=== PATIENT | male | born 1975 | race Caucasian/White ===

== ENCOUNTER 2023-05-04 01:07 | Emergency (ER) | payer OTHER, SELFPAY ==
[2023-05-04] VITALS (7 sets, daily range): BP systolic 132–269; BP diastolic 85–122; PULSE 59–74; RESP 10–19; O2SAT 90–96
[2023-05-04] MEDS: 0.9 % Sodium Chloride 1,000 ML 999 ML IV (08:51)
[2023-05-04] MEDS: Phenylephrine HCL 10 MG/ML VIAL INTRACAVER (08:51)
--- NOTE | 2023-05-04 08:58 | PC.NURSE ---
urology and MD Milton at bedside to treat ptt priapsm. VO for 4mg zofran administered. pt HR blair in the 50s and BP elevated. MD lynn.
[2023-05-04] MEDS: HYDROmorphone HCl 0.5 MG/0.5 ML SYRINGE IVPUSH (09:05)
[2023-05-04] MEDS: Labetalol HCL 100 MG/20 ML VIAL IVPUSH (09:11)
[2023-05-04] MEDS: ondansetron HCL 4 MG/2 ML VIAL IVPUSH (09:13)
--- NOTE | 2023-05-04 09:26 | P.CNUR_ITS ---
History of Present Illness Consult details Consult date: 05/04/23 Narrative: Called to evaluate patient for priaprism. > 24 hrs 47 year old male with history of hypertension on lisinopril 2.5 mg at home states he took trazadone for sleep monday night, woke up with erection Monday. He states this is the first time this has happened. The patient received phenylephrine injection by ED physician with no improvement. Review of Systems Review of Systems: 10 point ROS negative other than stated in HPI [facility] Social History Social History Alcohol intake: current Alcohol intake frequency: a few times a week Smoked in Last 30 Days: No Use of substances other than those prescribed or required for medical reasons: No Advance Directives: No Advance Directives Information Provided: Yes Meds Allergies Allergy/AdvReac Type Severity Reaction Status Date / Time Unable to Assess Allergy Verified 05/04/23 07:59 Active Medications: Current Medications Sodium Chloride (Ns) 1,000 mls @ 999 mls/hr IV .Q1H1M DANIEL Stop: 05/04/23 09:45 Last Admin: 05/04/23 08:51 Dose: 999 mls/hr Physical Exam Vital Signs: Vital Signs: Last Vital Signs Pulse 71 05/04/23 09:16 Resp 16 05/04/23 09:16 BP 162/107 H 05/04/23 09:16 Pulse Ox 90 L 05/04/23 09:16 O2 Del Method Room Air 05/04/23 09:16 Const: General: healthy appearing, no acute distress and well developed Orientation/consciousness: patient oriented x3 HEENT: Head: Yes normocephalic and Yes atraumatic Eyes: Conjunctivae: conjunctivae normal Neck: Neck: Yes normal visual inspection Chest: Chest palpation & inspection: normal inspection of the chest Resp: Effort & Inspection: normal respiratory effort Cardio: Rate: regular rate GI: Inspection: Yes normal to inspection Palpation (GI): Soft to palpation : Other: penis circumcised - rigid Scrotum: scrotum normal Skin: General skin exam: no rashes or lesions noted Neuro: General: patient oriented x3 Extrem: General: No pedal edema Psych: Appearance: grossly normal Affect: normal affect Results Labs Labs: All other labs normal. Assessment and Plan (1) Priapism: Status: Acute Plan Discontinue use of trazadone Avoid sexual activity for 2-3 days FU with Urology prn Time Spent With Patient Time: Total time managing care of this patient today ____ minutes. Procedures Date of Service Date of Service: 05/04/23 Penile Procedure Time out performed: Yes Indication: priapism management Procedural sedation: No Priapism management: phenylephrine injection (10mg/mL mixed with 10 mL normal saline) Patient tolerated procedure: well Additional comments: The patient had elevation of his BP which was managed by the ED physician with labetolol 2.5 mg
--- NOTE | 2023-05-04 10:15 | PC.NURSE ---
pt stood at bedside to void into urinal, 600ml. pt denied any pain or discomfort
== END 2023-05-04 11:25 | disposition home or self-care (01) ==
PROVIDERS: Emergency Provider Emergency Medicine; PCP Registered Nurse
DX: N48.30 Priapism, unspecified (principal); E11.9 Type 2 diabetes mellitus without complications; I10 Essential (primary) hypertension
CPT/HCPCS: 54220; 96361; 96374; 96375; 99284; J1170; J2371; J2405

== ENCOUNTER → 2023-05-04 02:17 | Outpatient (BNV) | payer OTHER, SELFPAY | PROVIDERS: Emergency Provider Emergency Medicine; PCP Registered Nurse; Visit Provider Urology | DX: N48.33 Priapism, drug-induced (principal) | CPT/HCPCS: 54235; 99223 ==